=== PATIENT | female | born 1945 | race Caucasian/White ===

== ENCOUNTER → 2023-12-09 07:11 | Outpatient (REF) | payer OTHER, SELFPAY | LOC: WDC 07:11 | PROVIDERS: ATTENDING PHYSICIAN Family Medicine | DX: Z12.31 Encounter for screening mammogram for malignant neoplasm of breast (principal) | CPT/HCPCS: 77063; 77067 ==

== ENCOUNTER 2024-02-06 15:15 | Inpatient (IN) | payer OTHER, SELFPAY ==
[2024-02-06] VITALS (7 sets, daily range): BP systolic 152–214; BP diastolic 75–116; BMI 33.2; BMI 31.6
--- NOTE | 2024-02-06 12:32 | ED.GENMED ---
History of Present Illness
General
Chief Complaint: Breathing Problem
Source: patient
Exam Limitations: none
Time Seen by Provider: 02/06/24 12:23
History of Present Illness
History of Present Illness:
78-year-old female presents from family doctor's office for shortness of breath and cough. She was sent in as her oxygen levels were low at the office. She was seen in the office last week and thought to have bronchitis. She has been on
prednisone. She is a pack-a-day smoker. She denies chest pain. No leg swelling or calf pain. No prior history of CHF. No recent travel or surgery. No fevers. No other complaints at this time
Phy Exam
Physical Exam
Physical Exam:
General: Well-appearing female no acute respiratory distress
HEENT: Normocephalic atraumatic
Heart: Regular rate and rhythm
Lungs: Wheeze diffusely upon inspiration and expiration
Extremities: No cyanosis or edema
Skin: Warm no rash
Scores
Heart Failure Risk
Heart Failure Risk Score: Not Applicable
Course
Orders/Labs/Results
Orders:
Orders
02/06/24 12:31
Ipratropium/Albuterol Sulfate [Duoneb] 3 ml INH R NOW STA
CR Chest - 2 Views Urgent
Comment:
Reason For Exam: cough, sob
02/06/24 12:40
COVID-19 Antigen Urgent
Source: Nasal Swab
Complete Blood Count/With Diff Urgent
Comprehensive Metabolic Panel Urgent
NT-proBNP Urgent
Influenza A+B Rapid Molecular Urgent
LIZBETH Source: Nasal Swab
Specimen Description:
02/06/24 14:17
Dexamethasone Sod Phosphate [Decadron] 10 mg IV NOW STA
Abnormal Lab Results
02/06/24
12:40
WBC 11.4 H 10^3/uL
(4.8-10.8)
MCHC 32.5 L g/dL
(33.0-37.0)
Abs Immat Gran (auto) 0.3 H 10^3/uL
(0-0.05)
Absolute Neuts (auto) 8.8 H 10^3/uL
(1.4-6.5)
Immature Gran % 2.3 H %
(0-0.5)
Neutrophils % 77.1 H %
(42.2-75.2)
Lymphocytes % 15.5 L %
(20.5-51.1)
Carbon Dioxide 34 H mmol/L
(22-30)
Glucose 130 H mg/dl
(70-99)
02/06/24 12:40
02/06/24 12:40
Vital Signs
Initial and Last Documented VS:
Initial Vital Signs
Temp Pulse Resp BP Pulse Ox
99.5 F 84 20 214/103 88
02/06/24 12:17 02/06/24 12:17 02/06/24 12:17 02/06/24 12:17 02/06/24 12:17
Last Documented Vital Signs
Temp Pulse Resp BP Pulse Ox
99.5 F 65 23 155/106 86
02/06/24 12:17 02/06/24 13:00 02/06/24 13:00 02/06/24 13:00 02/06/24 13:00
MDM/Problems Addressed
Differential Diagnosis Includes:
Shortness of breath with cough. Wheezing on exam. Consider asthma versus bronchitis. Will check for viral illness including COVID and flu. X-ray pending to evaluate for underlying pneumonia. Patient is hypoxic here and is requiring 2 L of nasal
cannula oxygen. DuoNeb ordered. Labs pending
*Critical Care Note
Total Time (30-74mins, 75-104mins- exclusive of procedures): Not Applicable
Update Note
Update Note:
Chest x-ray reviewed shows no obvious consolidation. Patient persist to be hypoxic. She is 90% on 2 L of oxygen. Wheezing slightly improved after DuoNeb but will keep in hospital for acute bronchitis and hypoxia.
ED Attending Note
-
Portions of this chart may have been created with voice recognition software.� Occasional wrong word or��sound alike� substitutions may have occurred due to the inherent limitations of voice recognition software.
Discharge Plan
Departure
Patient Disposition: Admit
Date of Disposition: 02/06/24
Time of Disposition: 14:19
Admit to: Telemetry
Presentation/result/management discussed w/ accepting MD/DO: Hospitalist
Discharge Problem:
Acute bronchitis
Referrals:
Salbador De Anda MD [Family Provider] -
Interventions
Interventions:
*Risk Screen - Suicide Last Done: 02/06/24 12:17
*General Assessment Last Done: 02/06/24 12:17
*Neglect/Abuse Screening Last Done: 02/06/24 12:17
ED- Fall Risk Assessment Last Done: 02/06/24 12:50
*ED COVID-19 Vaccine History Last Done: 02/06/24 12:49
ED- Cardiac Assessment Last Done: 02/06/24 12:50
ED- Pulmonary Assessment Last Done: 02/06/24 12:50
Discharge Date and Time
Print Language: ALBANIAN
[2024-02-06] MEDS: DUONEB 3 ML INH ×2 (12:38→20:05)
[2024-02-06 12:59] LABS: % Basophils 0.6 % (0-2); % Eosinophils 0.8 % (0-6); % Immature Granulocytes 2.3 % (0-0.5); % Lymphocytes 15.5 % (20.5-51.1); % Monocytes 3.7 % (1.7-9.3); % Neutrophils 77.1 % (42.2-75.2); Absolute Basophils 0.1 10^3/uL (0-0.2); Absolute Eosinophils 0.1 10^3/uL (0-0.7); Absolute Immature Granulocytes 0.3 10^3/uL (0-0.05); Absolute Lymphocytes 1.8 10^3/uL (1.2-3.4); Absolute Monocytes 0.4 10^3/uL (0.1-0.6); Absolute Neutrophils 8.8 10^3/uL (1.4-6.5); Hematocrit 43.7 % (37.0-47.0); Hemoglobin 14.2 g/dL (12.0-16.0); Mean Corp Hgb Conc. 32.5 g/dL (33.0-37.0); Mean Corpuscular Volume 95.4 fL (81.0-99.0); Mean Platelet Volume 9.2 fL (7.4-10.4); Nucleated Red Blood Cells % 0 %; Platelet Count 217 10^3/uL (130-400); Red Blood Cell Count 4.58 10^6/uL (4.20-5.40); Red Cell Dist. Width 13.9 % (11.5-14.5); White Blood Cell Count 11.4 10^3/uL (4.8-10.8)
[2024-02-06 13:10] LABS: ALT (SGPT) 16 U/L (0-35); AST (SGOT) 24 U/L (14-36); Albumin 4.7 g/dl (3.5-5.0); Alkaline Phosphatase 50 U/L (38-126); Blood Urea Nitrogen 16 mg/dl (7-17); Calcium 9.8 mg/dl (8.4-10.2); Carbon Dioxide 34 mmol/L (22-30); Chloride 98 mmol/L (98-107); Estimated Creatinine Clearance 70 ml/min; Glucose 130 mg/dl (70-99); Potassium 3.7 mmol/L (3.5-5.1); Sodium 143 mmol/L (135-145); Total Bilirubin 0.6 mg/dl (0.2-1.3); Total Protein 7.9 g/dl (6.3-8.2); eGFR > 60.00
[2024-02-06 13:14] LABS: COVID-19 Antigen Negative (Negative)
[2024-02-06 13:18] LABS: NT-proBNP 194 pg/ml
--- NOTE | 2024-02-06 15:00 | HPS.HSE ---
Family Physician
-
Family Physician: Salbador De Anda
Chief Complaint
-
cough
History of Present Illness
78-year-old female past medical history of hypertension, hyperlipidemia, osteoporosis, diabetes, diabetic nephropathy, presenting with shortness of breath and cough with low oxygen levels at primary care physician office for the past week. She was
thought to have bronchitis last week. She has been on prednisone for the past 5 days. She denies chest pain. Denies swelling. Denies fevers or chills. Denies sore throat or runny nose. Denies sick contacts.
Denies history of COPD or asthma. She smokes less than a pack of cigarettes per day. Denies alcohol.
Medical History
Past Medical History
Past Medical History: Reports Other ( hypertension, hyperlipidemia, osteoporosis, diabetes, diabetic nephropathy)
Past Surgical History: Reports None
Social History
Tobacco: Smoker
Alcohol: None
Drug: None
Family History
Family History: Not pertinent
Allergies / Home Medications
Allergies reflects when Allergies were last updated in [facility].
Home Medications with original date entered in [facility]
Allergy/Medication List:
Allergies
Allergy/AdvReac Type Severity Reaction Status Date / Time
Penicillins Allergy Unknown Verified 02/06/24 12:21
Home Medications
alendronate 70 mg tablet 70 mg PO FR 02/06/24
aspirin 81 mg tablet,delayed release 81 mg PO QPM 02/06/24
atenolol 100 mg tablet 50 mg PO HS 02/06/24
calcium 600 mg (as carbonate)-vitamin D3 5 mcg (200 unit) tablet 1 tab PO HS 02/06/24
hydrochlorothiazide 25 mg tablet 25 mg PO DAILY 02/06/24
ibuprofen 200 mg tablet 200 mg PO Q6HPRN PRN mild pain 02/06/24
losartan 100 mg tablet 100 mg PO DAILY 02/06/24
metformin 500 mg tablet,extended release 24 hr 500 mg PO BID 02/06/24
pravastatin 20 mg tablet 20 mg PO HS 02/06/24
prednisone 20 mg tablet 20 mg PO DAILY 02/06/24
vitamins A,C,L-dbnk-mzuqjf 2,148 mcg-113 mg-45 mg-17.4 mg tablet (PreserVision AREDS) 1 tab PO BID 02/06/24
Review of Systems
-
History Source: Patient
A 12 point ROS was completed and negative except as noted: Yes
Constitutional: Reports No Symptoms
EENT: Reports No Symptoms
Respiratory: Reports See HPI
Cardiac: Reports No Symptoms
Abdomen/GI: Reports No Symptoms
: Reports No Symptoms
Musculoskeletal: Reports No Symptoms
Skin: Reports No Symptoms
Neurological: Reports No Symptoms
Endocrine: Reports No Symptoms
Hematologic/Lymphatic: Reports No Symptoms
Psych: Reports No Symptoms
Physical Exam
Vital Signs
Vital Signs
Temp Pulse Resp BP Pulse Ox
99.5 F 65 23 155/106 86
02/06/24 12:17 02/06/24 13:00 02/06/24 13:00 02/06/24 13:00 02/06/24 13:00
Physical Exam
General: Well Developed, Well Nourished and No Apparent Distress
HEENT: NormoCephalic, Moist mucous membranes and Atraumatic
Respiratory: Wheezes
Cardiac: S1/S2 and Regular Rhythm; No Murmur or Rub
GI: Soft, Non Tender, Non Distended and Normal Bowel Sounds; No Organomegaly
Rectal: Deferred by Provider
Musculoskeletal: No Clubbing, No Cyanosis and No Edema
Skin: No Rash
Neuro: Nonfocal/grossly intact
Laboratory Results
-
02/06/24 12:40
02/06/24 12:40
Laboratory Results
Total Bilirubin 0.6 mg/dl (0.2-1.3) 02/06/24 12:40
AST 24 U/L (14-36) 02/06/24 12:40
ALT 16 U/L (0-35) 02/06/24 12:40
Alkaline Phosphatase 50 U/L (38-126) 02/06/24 12:40
Data Reviewed
-
Lab Data: Labs Reviewed by me
Old Records: Reviewed
Impression/Plan
-
IMPRESSION:
PLAN:
# Acute bronchitis
-Chest x-ray unremarkable.
-DuoNebs every 6 hours
-Dexamethasone 4 mg every 12 hours
-Mucinex
# Uncontrolled hypertension
#Essential hypertension
-Systolic blood pressures up to 190s
-Continue atenolol
-Continue losartan
-Continue hydrochlorothiazide
-As needed hydralazine
Active smoker
Hyperlipidemia
-Continue statin
Osteoporosis
-Continue alendronate
Type 2 diabetes
-Continue metformin
Diabetic neuropathy
Full code
DVT prophylaxis-heparin
Diabetic diet
[2024-02-06] MEDS: DECADRON 10 MG IV (15:56)
[2024-02-06] MEDS: GLUCOPHAGE XR EXTENDED RELEASE 500 MG PO (17:06)
[2024-02-06] MEDS: ASPIR LOW (ENTERIC COATED) 81 MG PO (17:07)
[2024-02-06] MEDS: DUONEB INH (18:19)
[2024-02-06] MEDS: OSCAL 500 + D 500 MG PO (20:02)
[2024-02-06] MEDS: HEPARIN 5000 UNITS SC (20:02)
[2024-02-06] MEDS: OCUVITE SOFTGEL 1 CAP PO (20:02)
[2024-02-06] MEDS: PRAVACHOL 20 MG PO (20:02)
[2024-02-06] MEDS: TENORMIN 50 MG PO (20:02)
[2024-02-06] MEDS: MUCINEX 600 MG PO (20:03)
--- NOTE | 2024-02-06 21:00 | PTCARENOTE ---
while ambulating pt HR was 120's then back to 90-100's when she sat down.
[2024-02-07 03:31] VITALS: BP 173/79
[2024-02-07] MEDS: DECADRON 4 MG IV ×2 (05:29→17:40)
[2024-02-07 07:30] VITALS: BP 175/88
[2024-02-07 07:58] LABS: % Basophils 0.2 % (0-2); % Eosinophils 0.1 % (0-6); % Immature Granulocytes 1.1 % (0-0.5); % Monocytes 3.9 % (1.7-9.3); % Neutrophils 81.7 % (42.2-75.2); Absolute Immature Granulocytes 0.2 10^3/uL (0-0.05); Absolute Lymphocytes 1.7 10^3/uL (1.2-3.4); Absolute Monocytes 0.5 10^3/uL (0.1-0.6); Absolute Neutrophils 10.8 10^3/uL (1.4-6.5); Hematocrit 43.2 % (37.0-47.0); Hemoglobin 14.2 g/dL (12.0-16.0); Mean Corp Hgb Conc. 32.9 g/dL (33.0-37.0); Mean Corpuscular Hgb 31.7 pg (27.0-31.0); Mean Corpuscular Volume 96.4 fL (81.0-99.0); Mean Platelet Volume 9.6 fL (7.4-10.4); Nucleated Red Blood Cells % 0 %; Platelet Count 231 10^3/uL (130-400); Red Blood Cell Count 4.48 10^6/uL (4.20-5.40); Red Cell Dist. Width 13.8 % (11.5-14.5); White Blood Cell Count 13.2 10^3/uL (4.8-10.8)
[2024-02-07] MEDS: DUONEB 3 ML INH ×4 (08:00→19:08)
--- NOTE | 2024-02-07 08:39 | W.PN.HOSP.TC ---
Today's Communication/Plan
-
IV steroids. Antibiotics. CT of the chest.
Assessment / Plan
Assessment / Plan
Physical exam:
General: Acutely ill
HEENT: Normocephalic, Atraumatic and Moist Mucous Membranes
Respiratory: Bilateral wheezes, some rhonchi, no crackles
Cardiac: Regular Rhythm and S1/S2
GI: Soft, Nontender and Nondistended
Musculoskeletal: No Clubbing, No Cyanosis and No Edema
Neuro: Awake, Alert and Oriented
Psych: Calm
A/P:
Suspect undiagnosed acute COPD exacerbation with possible bronchitis but rule out pneumonia:
Continue IV dexamethasone 4 mg every 12 hours
Continue bronchodilators, DuoNebs 4 times daily and as needed
Start oral azithromycin today and if not for infection for anti-inflammatory effect
Continue Mucinex
Seen chest x-ray and some nonspecific abnormalities
Obtain CT scan of the chest without contrast today
Obtain twelve-lead EKG for baseline QTc
Obtain sputum culture
PT OT eval
Likely will require PFTs with referral to pulmonary as outpatient
Hypertension:
Uncontrolled
Continue atenolol 50 mg p.o. nightly, hydrochlorothiazide 25 mg p.o. daily, and losartan 100 as p.o. daily
Will start her on hydralazine 25 mg 3 times daily today 02/06
Monitor blood pressure and adjust medications according
Hyperlipidemia:
Continue pravastatin 20 mg p.o. nightly
Diabetes mellitus type 2:
Insulin sliding scale
Diabetic diet
Continue metformin XR 500 mg twice a day
Monitor blood sugars and adjust medications according
Osteoporosis:
Hold alendronate as inpatient and resume upon discharge
Smoker:
Advised quit smoking
Start nicotine patch
DVT prophylaxis:
Heparin SQ
CODE STATUS:
Full code
Anticipated Discharge: 24 - 48 hours
Subjective/Interval History
-
Date of Service: February 07, 2024
Patient still have some cough with yellow sputum production and also some shortness of breath. Afebrile.
Objective Data
-
Labs:
Laboratory Results
02/07/24
07:30
WBC 13.2 H
Hgb 14.2
Hct 43.2
Plt Count 231
Sodium Pending
Potassium Pending
Chloride Pending
Carbon Dioxide Pending
BUN Pending
Creatinine Pending
Glucose Pending
Calcium Pending
Vital Signs:
Vital Signs
Temp Pulse Resp BP Pulse Ox
98.8 F 74 16 175/88 87
02/07/24 07:30 02/07/24 08:01 02/07/24 08:01 02/07/24 07:30 02/07/24 08:01
I&O
02/06/24 02/07/24 02/08/24
06:59 06:59 06:59
Intake Total 480 / 480
Balance 480 / 480
[2024-02-07] MEDS: GLUCOPHAGE XR EXTENDED RELEASE 500 MG PO ×2 (09:07→17:33)
[2024-02-07] MEDS: ORETIC 25 MG PO (09:07)
[2024-02-07] MEDS: COZAAR 100 MG PO (09:07)
[2024-02-07] MEDS: MUCINEX 600 MG PO ×2 (09:07→20:43)
[2024-02-07] MEDS: OCUVITE SOFTGEL 1 CAP PO ×2 (09:08→20:43)
[2024-02-07] MEDS: HEPARIN 5000 UNITS SC ×2 (09:08→20:43)
[2024-02-07 09:50] LABS: Blood Urea Nitrogen 25 mg/dl (7-17); Calcium 10.2 mg/dl (8.4-10.2); Carbon Dioxide 29 mmol/L (22-30); Chloride 98 mmol/L (98-107); Estimated Creatinine Clearance 82 ml/min; Glucose 139 mg/dl (70-99); Potassium 4.2 mmol/L (3.5-5.1); Sodium 142 mmol/L (135-145); eGFR > 60.00
[2024-02-07 11:00] VITALS: BP 152/84; BP 155/84; BP 162/82; PULSE 62; PULSE 67; PULSE 68
[2024-02-07] MEDS: APRESOLINE 25 MG PO ×3 (13:03→20:44)
[2024-02-07] MEDS: ZITHROMAX 500 MG PO (13:03)
--- NOTE | 2024-02-07 14:14 | CM ---
Pt seen bedside. Pt lives w/ spouse in a split level home, no steps.
Pt independent. Denies DME use for ambulating and daily functioning
Denies SNF, VN/PT in the past
Pt does not use O2 at home. Receiving 2L O2 and aimee neb treatments.
Address, point of contact and insurance verified.
PCP: Dr. Salbador De Anda
Pharmacy: [facility]
Plan: Home w/ needs vs no needs anticipated
[2024-02-07 15:06] VITALS: BP 151/77
[2024-02-07] MEDS: ASPIR LOW (ENTERIC COATED) 81 MG PO (17:33)
[2024-02-07] MEDS: TENORMIN 50 MG PO (20:44)
[2024-02-07] MEDS: PRAVACHOL 20 MG PO (20:44)
[2024-02-07] MEDS: OSCAL 500 + D 500 MG PO (20:44)
[2024-02-07 23:15] VITALS: BP 155/71
[2024-02-08] VITALS (8 sets, daily range): BP systolic 147–174; BP diastolic 71–105; PULSE 61; O2SAT 94
[2024-02-08] MEDS: DECADRON 4 MG IV ×2 (05:18→17:09)
[2024-02-08] MEDS: DUONEB 3 ML INH ×4 (08:05→19:11)
[2024-02-08] MEDS: GLUCOPHAGE XR EXTENDED RELEASE 500 MG PO ×2 (08:08→17:09)
[2024-02-08] MEDS: HEPARIN 5000 UNITS SC ×3 (08:08→23:17)
[2024-02-08] MEDS: APRESOLINE 25 MG PO (08:08)
[2024-02-08] MEDS: COZAAR 100 MG PO (08:08)
[2024-02-08] MEDS: OCUVITE SOFTGEL 1 CAP PO ×2 (08:09→21:05)
[2024-02-08] MEDS: MUCINEX 600 MG PO ×2 (08:09→21:05)
[2024-02-08] MEDS: ZITHROMAX 500 MG PO (08:09)
[2024-02-08] MEDS: ORETIC 25 MG PO (08:09)
[2024-02-08 08:27] LABS: % Basophils 0.2 % (0-2); % Lymphocytes 12.7 % (20.5-51.1); % Monocytes 3.2 % (1.7-9.3); % Neutrophils 82.9 % (42.2-75.2); Absolute Immature Granulocytes 0.2 10^3/uL (0-0.05); Absolute Lymphocytes 1.8 10^3/uL (1.2-3.4); Absolute Monocytes 0.5 10^3/uL (0.1-0.6); Hematocrit 43.2 % (37.0-47.0); Hemoglobin 13.9 g/dL (12.0-16.0); Mean Corp Hgb Conc. 32.2 g/dL (33.0-37.0); Mean Corpuscular Hgb 31.5 pg (27.0-31.0); Nucleated Red Blood Cells % 0 %; Red Blood Cell Count 4.41 10^6/uL (4.20-5.40); Red Cell Dist. Width 14.1 % (11.5-14.5); White Blood Cell Count 14.5 10^3/uL (4.8-10.8)
--- NOTE | 2024-02-08 09:00 | W.PN.HOSP.TC ---
Today's Communication/Plan
-
IV steroids, oral antibiotics.
Assessment / Plan
Assessment / Plan
Physical exam:
General: No acute distress
HEENT: Normocephalic, Atraumatic and Moist Mucous Membranes
Respiratory: Bilateral scattered wheezes, some rhonchi, no crackles
Cardiac: Regular Rhythm and S1/S2
GI: Soft, Nontender and Nondistended
Musculoskeletal: No Clubbing, No Cyanosis and No Edema
Neuro: Awake, Alert and Oriented
Psych: Calm
A/P:
Suspect undiagnosed acute COPD exacerbation with possible bronchitis but rule out pneumonia:
Continue IV dexamethasone 4 mg every 12 hours--> keep IV steroid and will consider switch to oral tomorrow
Continue bronchodilators, DuoNebs 4 times daily and as needed
Started oral azithromycin
Continue Mucinex
Seen chest x-ray and some nonspecific abnormalities
Obtain CT scan of the chest without contrast--> shows evidence of probable pneumonia
Obtain twelve-lead EKG for baseline QTc
Obtain sputum culture
PT OT eval
Likely will require PFTs with referral to pulmonary as outpatient
Probable pneumonia:
Penicillin allergy
Levaquin was used-there was infiltration on right upper extremity and also itchiness-->?allergy (give Benadryl x1 and already on steroids)
For now will continue with azithromycin.
Hypertension:
Uncontrolled
Continue atenolol 50 mg p.o. nightly, hydrochlorothiazide 25 mg p.o. daily, and losartan 100 as p.o. daily
Continue hydralazine but increase to 50 mg 3 times daily today 02/06
Monitor blood pressure and adjust medications according
Hyperlipidemia:
Continue pravastatin 20 mg p.o. nightly
Diabetes mellitus type 2:
There was not insulin sliding scale so started today
Diabetic diet
Continue metformin XR 500 mg twice a day
Monitor blood sugars and adjust medications according
Osteoporosis:
Hold alendronate as inpatient and resume upon discharge
Smoker:
Advised quit smoking
Start nicotine patch
DVT prophylaxis:
Heparin SQ
CODE STATUS:
Full code
Anticipated Discharge: 24 - 48 hours
Subjective/Interval History
-
Date of Service: February 08, 2024
Patient feels improving although still have some wheezes. Afebrile
Objective Data
-
Labs:
Laboratory Results
02/08/24
08:01
WBC 14.5 H
Hgb 13.9
Hct 43.2
Plt Count Pending
Sodium Pending
Potassium Pending
Chloride Pending
Carbon Dioxide Pending
BUN Pending
Creatinine Pending
Glucose Pending
Calcium Pending
Vital Signs:
Vital Signs
Temp Pulse Resp BP Pulse Ox
98.6 F 58 18 154/82 88
02/08/24 08:00 02/08/24 08:05 02/08/24 08:05 02/08/24 08:00 02/08/24 08:05
I&O
02/07/24 02/08/24 02/09/24
06:59 06:59 06:59
Intake Total 480 / 480 1680 / 1680
Balance 480 / 480 1680 / 1680
[2024-02-08 09:02] LABS: Procalcitonin < 0.05 ng/ml (0.0-0.25)
[2024-02-08 11:38] LABS: Blood Urea Nitrogen 32 mg/dl (7-17); Calcium 10.2 mg/dl (8.4-10.2); Carbon Dioxide 29 mmol/L (22-30); Chloride 96 mmol/L (98-107); Estimated Creatinine Clearance 62 ml/min; Glucose 172 mg/dl (70-99); Potassium 4.3 mmol/L (3.5-5.1); Sodium 139 mmol/L (135-145); eGFR > 60.00
[2024-02-08] MEDS: LEVAQUIN 150 IV (13:42)
--- NOTE | 2024-02-08 14:21 | CM ---
Chart reviewed.
Per PT/OT, no needs identified
Cont. 2L O2
Receiving neb tx
Plan: Home; no needs anticipated
--- NOTE | 2024-02-08 15:06 | PTCARENOTE ---
Pt receiving Levaquin IV and noted to have redness and itching at IV site. IV was noted to be infiltrated as well. Dr. Saavedra aware. Will d/c Levaquin and continue po Zithromax.
--- NOTE | 2024-02-08 15:13 | VATNOTE ---
called to restart IV due to right forearm infiltrate. Noted moderate infiltrate that was red and 'itches'; not much of Levoflaxin had infused. PCN informed; ice applied; provider saw site as well. RS of IV in left hand. Antibiotic stopped per
[2024-02-08] MEDS: APRESOLINE 50 MG PO ×2 (15:18→21:05)
[2024-02-08] MEDS: BENADRYL 50 MG PO (15:18)
[2024-02-08 16:56] LABS: Glucose - Point of Care 120 mg/dl (70-99)
[2024-02-08] MEDS: ASPIR LOW (ENTERIC COATED) 81 MG PO (17:09)
[2024-02-08] MEDS: PRAVACHOL 20 MG PO (21:05)
[2024-02-08] MEDS: OSCAL 500 + D 500 MG PO (21:05)
[2024-02-08] MEDS: TENORMIN 50 MG PO (21:06)
[2024-02-08 22:11] LABS: Glucose - Point of Care 174 mg/dl (70-99)
[2024-02-09] VITALS (7 sets, daily range): BP systolic 143–168; BP diastolic 71–91; PULSE 58; O2SAT 95
--- NOTE | 2024-02-09 03:04 | PTCARENOTE ---
Pt HR down to 39 on tele. HR consistent in low-mid 40s. Pt asymptomatic, asleep. VOICE STUDIES DIRECTOR made aware. No further orders.
[2024-02-09] MEDS: DECADRON 4 MG IV (05:30)
[2024-02-09 07:23] LABS: Glucose - Point of Care 151 mg/dl (70-99)
[2024-02-09] MEDS: DUONEB 3 ML INH ×4 (07:41→19:55)
--- NOTE | 2024-02-09 08:52 | W.PN.HOSP.TC ---
Addendum entered and electronically signed by Raz Saavedra MD 02/09/24 15:59:
Bacterial Pneumonia
Original Note:
Today's Communication/Plan
-
Steroids antibiotics and bronchodilators.
Assessment / Plan
Assessment / Plan
Physical exam:
General: No acute distress
HEENT: Normocephalic, Atraumatic and Moist Mucous Membranes
Respiratory: Less wheezes today, no crackles or rhonchi
Cardiac: Regular Rhythm and S1/S2
GI: Soft, Nontender and Nondistended
Musculoskeletal: No Clubbing, No Cyanosis and No Edema
Neuro: Awake, Alert and Oriented
Psych: Calm
A/P:
Suspect undiagnosed acute COPD exacerbation:
Switch IV dexamethasone today to oral prednisone
Continue bronchodilators, DuoNebs 4 times daily and as needed
Continue oral azithromycin
Pulse ox improved at rest but still dropping on exertion so we will recheck pulse ox for home oxygen needs tomorrow.
Continue Mucinex
Seen chest x-ray and some nonspecific abnormalities
Obtained CT scan of the chest without contrast--> shows evidence of probable pneumonia
Obtained twelve-lead EKG for baseline QTc
Obtain sputum culture
PT OT eval
Likely will require PFTs with referral to pulmonary as outpatient
Probable pneumonia:
Penicillin allergy
Levaquin was used-there was infiltration on right upper extremity and also itchiness-->?allergy (give Benadryl x1 and already on steroids)
For now will continue with azithromycin.
Hypertension:
Uncontrolled
Continue atenolol 50 mg p.o. nightly, hydrochlorothiazide 25 mg p.o. daily, and losartan 100 as p.o. daily
Continue hydralazine but increase to 50 mg 3 times daily today 02/06
Monitor blood pressure and adjust medications according
Hyperlipidemia:
Continue pravastatin 20 mg p.o. nightly
Diabetes mellitus type 2:
Continue insulin sliding scale and now that steroids have been tapered most likely will require less intervention
Diabetic diet
Continue metformin XR 500 mg twice a day
Monitor blood sugars and adjust medications according
Osteoporosis:
Hold alendronate as inpatient and resume upon discharge
Smoker:
Advised quit smoking
Continue nicotine patch
DVT prophylaxis:
Heparin SQ
CODE STATUS:
Full code
Anticipated Discharge: Within 24 hours
Subjective/Interval History
-
Date of Service: February 09, 2024
Patient feels improved with less cough and shortness of breath. Afebrile
Objective Data
-
Vital Signs:
Vital Signs
Temp Pulse Resp BP Pulse Ox
97.9 F 48 16 168/91 93
02/09/24 07:08 02/09/24 07:44 02/09/24 07:44 02/09/24 07:08 02/09/24 08:16
I&O
02/08/24 02/09/24 02/10/24
06:59 06:59 06:59
Intake Total 1680 / 1680 1590 / 1590
Balance 1680 / 1680 1590 / 1590
[2024-02-09] MEDS: GLUCOPHAGE XR EXTENDED RELEASE 500 MG PO ×2 (09:12→17:05)
[2024-02-09] MEDS: COZAAR 100 MG PO (09:12)
[2024-02-09] MEDS: APRESOLINE 50 MG PO ×3 (09:12→21:18)
[2024-02-09] MEDS: ORETIC 25 MG PO (09:13)
[2024-02-09] MEDS: HEPARIN 5000 UNITS SC ×3 (09:13→23:14)
[2024-02-09] MEDS: MUCINEX 600 MG PO ×2 (09:13→21:17)
[2024-02-09] MEDS: OCUVITE SOFTGEL 1 CAP PO ×2 (09:13→21:18)
[2024-02-09] MEDS: ZITHROMAX 500 MG PO (09:14)
[2024-02-09 11:42] LABS: Glucose - Point of Care 133 mg/dl (70-99)
[2024-02-09 11:46] LABS: Glycohemoglobin (HgbA1c) 6.5 % (4.0-5.6)
--- NOTE | 2024-02-09 14:26 | PN.CDI ---
CDI
- -
CDI:
Physician Documentation Request
Admit Date: 02/06/24 15:15
Dear Doctor Quentin,
Please review the following and provide your response in the progress notes.
Clinical Indicators:
PN, 02/08
#Steroids antibiotics and bronchodilators.
#Obtained CT scan of the chest without contrast-->
#...shows evidence of probable pneumonia
#Obtain sputum culture
#Probable pneumonia:
#Levaquin was used-there was infiltration on right upper extremity
#...and also itchiness-->?allergy (give Benadryl x1 and already on steroids)
#For now will continue with azithromycin.
Laboratory Tests
02/06/24 02/07/24 02/08/24
12:40 07:30 08:01
WBC 11.4 H 13.2 H 14.5 H
02/08/24 23:34 Respiratory Culture - Pending
Sputum Gram Stain - Preliminary
Based on the above and your clinical assessment, please clarify in the Progress Notes further specificity regarding the type of pneumonia monitored, evaluated and treated?
Bacterial Pneumonia
Aspiration Pneumonia - indicate substance such as food or vomitus, oils or other solids or liquids
Other(please specify)
Use of terms such as suspected, likely, concern for, or probable (associated with a specific diagnosis that is being evaluated, monitored, or treated as if it exists) are acceptable and can be coded in the inpatient setting, when documented at the
time of discharge.
Thank you,
Luzma Kahn RN BSN CCDS
CDI Specialist
Please contact via tiger text
Please use your independent medical judgment in providing your response.
[2024-02-09 16:57] LABS: Glucose - Point of Care 122 mg/dl (70-99)
[2024-02-09] MEDS: ASPIR LOW (ENTERIC COATED) 81 MG PO (17:05)
[2024-02-09] MEDS: DELTASONE 40 MG PO (21:17)
[2024-02-09] MEDS: PRAVACHOL 20 MG PO (21:18)
[2024-02-09] MEDS: OSCAL 500 + D 500 MG PO (21:18)
[2024-02-09] MEDS: TENORMIN 50 MG PO (21:18)
[2024-02-09 21:29] LABS: Glucose - Point of Care 114 mg/dl (70-99)
[2024-02-09] MEDS: MELATONIN 5 MG PO (23:08)
[2024-02-10 03:15] VITALS: BP 149/70
[2024-02-10 07:00] VITALS: BP 149/70
[2024-02-10 07:39] LABS: Glucose - Point of Care 132 mg/dl (70-99)
[2024-02-10] MEDS: DUONEB 3 ML INH ×2 (08:00→11:32)
[2024-02-10] MEDS: GLUCOPHAGE XR EXTENDED RELEASE 500 MG PO (08:10)
[2024-02-10] MEDS: COZAAR 100 MG PO (08:10)
[2024-02-10] MEDS: APRESOLINE 50 MG PO (08:10)
[2024-02-10] MEDS: ORETIC 25 MG PO (08:10)
[2024-02-10] MEDS: HEPARIN 5000 UNITS SC (08:10)
[2024-02-10] MEDS: ZITHROMAX 500 MG PO (08:10)
[2024-02-10] MEDS: OCUVITE SOFTGEL 1 CAP PO (08:12)
[2024-02-10] MEDS: MUCINEX 600 MG PO (08:13)
[2024-02-10] MEDS: DELTASONE 40 MG PO (08:13)
--- NOTE | 2024-02-10 09:55 | W.PN.HOSP.TC ---
Today's Communication/Plan
-
Discharge plan today
Assessment / Plan
Assessment / Plan
Physical exam:
General: Well Developed, Well Nourished and No Apparent Distress
HEENT: Normocephalic, Atraumatic and Moist Mucous Membranes
Respiratory: Clear to Auscultation; Negative Wheezes, Rales or Rhonchi
Cardiac: Regular Rhythm and S1/S2
GI: Soft, Nontender and Nondistended
Musculoskeletal: No Clubbing, No Cyanosis and No Edema
Neuro: Awake, Alert and Oriented
Psych: Calm
A/P:
Suspect undiagnosed acute COPD exacerbation:
Continue oral prednisone and plan for tapering course as outpatient
Continue bronchodilators, DuoNebs 4 times daily and as needed
Continue oral azithromycin to finish course
Assess home oxygen needs
Continue Mucinex
Seen chest x-ray and some nonspecific abnormalities
Obtained CT scan of the chest without contrast--> shows evidence of probable pneumonia
Obtained twelve-lead EKG for baseline QTc
Obtain sputum culture
PT OT eval
Likely will require PFTs with referral to pulmonary as outpatient--> discussed with Dr. Samuel and we will arrange arrange outpatient referral to pulmonary.
Probable pneumonia:
Penicillin allergy
Levaquin was used-there was infiltration on right upper extremity and also itchiness-->?allergy (give Benadryl x1 and already on steroids)
For now will continue with azithromycin.
Hypertension:
Uncontrolled
Continue atenolol 50 mg p.o. nightly, hydrochlorothiazide 25 mg p.o. daily, and losartan 100 as p.o. daily
Continue hydralazine but increase to 50 mg 3 times daily
Monitor blood pressure and adjust medications according
Hyperlipidemia:
Continue pravastatin 20 mg p.o. nightly
Diabetes mellitus type 2:
Continue insulin sliding scale and now that steroids have been tapered most likely will require less intervention
Diabetic diet
Continue metformin XR 500 mg twice a day
Monitor blood sugars and adjust medications according
Osteoporosis:
Hold alendronate as inpatient and resume upon discharge
Smoker:
Advised quit smoking
Continue nicotine patch
DVT prophylaxis:
Heparin SQ
CODE STATUS:
Full code
Anticipated Discharge: Today
Subjective/Interval History
-
Date of Service: February 10, 2024
Patient doing well. Less shortness of breath and cough.
Objective Data
-
Vital Signs:
Vital Signs
Temp Pulse Resp BP Pulse Ox
98.5 F 57 16 149/70 95
02/10/24 07:00 02/10/24 08:00 02/10/24 08:00 02/10/24 07:00 02/10/24 08:00
I&O
02/09/24 02/10/24 02/11/24
06:59 06:59 06:59
Intake Total 1590 / 1590 480 / 480
Balance 1590 / 1590 480 / 480
--- NOTE | 2024-02-10 11:08 | CM ---
Patient seen bedside, off O2. Patient denies needs from CM, inquiring about her discharge. IMM reviewed, signed, placed in chart. CM will continue to follow for all discharge planning needs.
Plan; home no needs.
[2024-02-10 12:04] LABS: Glucose - Point of Care 115 mg/dl (70-99)
--- NOTE | 2024-02-10 13:30 | W.DCSUMMARY ---
Discharge Summary
Discharge Data
Date of Admission: 02/06/24
Date of Discharge: 02/10/24
-
Pending Results: No
Hospital Course
Patient 78 years old female smoker who came into the hospital with shortness of breath, cough, wheezing, and hypoxia. Patient was started on IV steroids and bronchodilators. She had a CT scan concerning for pneumonia. She was treated with oral
azithromycin and responded well. Patient has been afebrile and hemodynamically stable. She was able to come off oxygen. Her steroids have been switched to oral. I reached out to pulmonary for a referral as outpatient since she will require
further evaluation by pulmonary and patient agreeable with that plan. Otherwise, patient feels symptomatically back to her baseline. She will be discharged in stable condition today.
Discharge duration: 35 minutes
Discharge Plan
-
Patient Disposition: Home (Routine Discharge)
Discharge Diagnosis/Procedures: Acute chronic obstructive pulmonary disease exacerbation. Pneumonia. Hypoxia.
Condition: Fair
Diet: Low Cholesterol
Activity: As tolerated
Blood Work: Please PCP to order CBC, BMP within 1 week
Referrals:
Salbador De Anda MD [Family Provider] - in less than 1 week
Jayson Samuel MD [Active] - in four to six weeks
Prescriptions:
New
hydralazine 25 mg Tablet
50 mg PO TID 30 Days Qty: 180 0RF
prednisone 10 mg Tablet
See Rx Instructions .ROUTE .COMPLEX Qty: 30 0RF
Rx Instructions:
Take By Mouth:
40 mg daily x3 days, 30 mg daily x3 days,
20 mg daily x3 days, 10 mg daily x3 days.
azithromycin 250 mg Tablet
500 mg PO DAILY 2 Days Qty: 4 0RF
Continued
atenolol 100 mg Tablet
50 mg PO HS
alendronate 70 mg Tablet
70 mg PO FR
aspirin 81 mg Tablet,Delayed Release (Dr/Ec)
81 mg PO QPM
ibuprofen 200 mg Tablet
200 mg PO Q6HPRN PRN (Reason: mild pain)
pravastatin 20 mg Tablet
20 mg PO HS
hydrochlorothiazide 25 mg Tablet
25 mg PO DAILY
losartan 100 mg Tablet
100 mg PO DAILY
metformin 500 mg Tablet Extended Release 24 Hr
500 mg PO BID
PreserVision AREDS 2,148 mcg-113 mg-45 mg-17.4mg Tablet
1 tab PO BID
calcium carbonate-vitamin D3 600 mg-5 mcg (200 unit) Tablet
1 tab PO HS
Discontinued
prednisone 20 mg Tablet
20 mg PO DAILY
Rx Instructions:
started 01-31-24 for 7 days
Discharge Orders:
Discharge Patient (As Directed); Ordered 02/10/24
Ordered By: Raz Saavedra
Discharge Date and Time
Discharge Date/Time: 02/10/24 14:58
Print Language: NAURUAN
== END 2024-02-10 14:58 | disposition home or self-care (01) | DRG 190 ==
LOC: 4 WEST ACU 15:15
PROVIDERS: Physician Assistant; ADMITTING PHYSICIAN Hospitalist; ATTENDING PHYSICIAN Hospitalist; EMERGENCY PHYSICIAN Emergency Medicine; FAMILY PHYSICIAN Family Medicine
DX: J44.1 Chronic obstructive pulmonary disease with (acute) exacerbation (principal); J15.9 Unspecified bacterial pneumonia; J44.0 Chronic obstructive pulmonary disease with (acute) lower respiratory infection; F17.210 Nicotine dependence, cigarettes, uncomplicated; R09.02 Hypoxemia; J20.9 Acute bronchitis, unspecified; I10 Essential (primary) hypertension; E78.5 Hyperlipidemia, unspecified; M81.0 Age-related osteoporosis without current pathological fracture; E11.40 Type 2 diabetes mellitus with diabetic neuropathy, unspecified; Z88.0 Allergy status to penicillin; Z79.84 Long term (current) use of oral hypoglycemic drugs; Z79.83 Long term (current) use of bisphosphonates; Z79.82 Long term (current) use of aspirin; Z79.52 Long term (current) use of systemic steroids; Z11.52 Encounter for screening for COVID-19
CPT/HCPCS: 71046; 71250; 80048; 80053; 82962; 83036; 83880; 84145; 85025; 87070; 87205; 87502; 87811; 93005; 94640; 97116; 97162; 97166; 97530; 99285; 99406

== ENCOUNTER 2025-01-08 01:23 | Emergency (ER) | payer OTHER, SELFPAY ==
[2025-01-08 01:23] VITALS: BP 214/122
--- NOTE | 2025-01-08 02:45 | DOWNTIME ---
There was a [employer] Client Composition Instructor Downtime on 01/08/2025 from 0100 to 01/08/2025 at 0215. Downtime documentation of patient's care, including medication administrations, has been reconciled in the electronic record per guidelines. Refer to the
patient's paper chart under the miscellaneous tab to see printed paper medication records and downtime forms.
[2025-01-08 03:00] VITALS: BMI 31.5
[2025-01-08 03:07] VITALS: BP 170/100
[2025-01-08 04:03] LABS: Urine Character Clear (Clear)
[2025-01-08 04:16] LABS: Urine Red Blood Cell 16-20 /HPF (0-2)
[2025-01-08] MEDS: VALIUM 2 MG PO (04:17)
[2025-01-08] MEDS: TORADOL 15 MG IM (04:17)
--- NOTE | 2025-01-08 05:06 | ED.GENMED ---
History of Present Illness
General
Chief Complaint: Extremity Pain (non-traumatic)
Source: patient
Exam Limitations: none
Nursing documentation reviewed up to this point in time: agreed with
History of Present Illness
History of Present Illness:
Note:
CHIEF COMPLAINT(S)
Low back pain radiating to the left knee.
HISTORY OF PRESENT ILLNESS
The patient is a 79-year-old male who presents with low back pain that radiates to the left knee. The symptoms started yesterday without any trauma. The patient denies urinary retention or incontinence and reports taking ibuprofen, which offered
some relief, with the last dose taken at 3 p.m. yesterday. He denies fever, chills, cough, or vomiting and reports no recent injury.
SOCIAL HISTORY
The patient is a smoker and is currently trying to quit.
REVIEW OF SYSTEMS
- Neurological: Denies urinary retention or incontinence.
- Respiratory: Denies fever or chills.
- Gastrointestinal: Denies cough or vomiting.
- Musculoskeletal: Reports low back pain radiating to the left knee.
PHYSICAL EXAM
General: Alert, no acute distress.
Skin: Warm, dry.
Head: Normocephalic, atraumatic.
Neck: Supple, trachea midline.
Eye Ears, nose, mouth and throat: Oral mucosa moist.
Cardiovascular: Normal peripheral perfusion, no edema. Heart is in regular rhythm.
Respiratory: Respirations are non-labored. Low saturation noted.
Gastrointestinal: Abdomen nondistended.
Back: Normal range of motion, normal alignment. Focused on the left leg and hip.
Musculoskeletal: Mildly positive straight leg raising test on the left. Normal hip rotation test. No knee or ankle pain.
Neurological: Alert and oriented to person, place, time, and situation. No focal neurological deficit observed.
Psychiatric: Cooperative, appropriate mood & affect.
PLAN
- The patient will attempt postural and volume interventions to manage symptoms.
DIFFERENTIAL DIAGNOSIS
The Differential Diagnosis includes, in no particular order and is not limited to:
1. Sciatica
2. Lumbar radiculopathy
3. Lumbar strain
4. Disc herniation
5. Spinal stenosis
6. Osteoarthritis
7. Ankylosing spondylitis
8. Peripheral neuropathy
9. Hip arthritis
10. Lumbosacral spondylosis
Disposition:
SUMMARY OF ENCOUNTER
The patient, a 79-year-old female, was seen with complaints of low back pain radiating to her left knee, beginning yesterday without any associated trauma. She denies bowel or bladder incontinence. The patient experienced symptom relief with
ibuprofen and a muscle relaxant previously administered. Evaluation revealed no acute distress or additional concerning symptoms. The patient expressed a desire to be discharged and plans to continue managing the pain with ibuprofen at home.
DISPOSITION
Discharge
ASSESSMENT
The patients symptoms are consistent with lumbar radiculopathy or sciatica, likely due to nerve compression or irritation possibly stemming from an underlying condition such as lumbar strain or osteoarthritis.
PLAN
The patient will continue taking ibuprofen as needed for pain management at home. She was advised on postural changes and volume interventions to manage symptoms.
PATIENT EDUCATION AND COUNSELING
The patient was informed about the nature of her condition, potential contributing factors, and advised on postural changes and volume-related interventions to help alleviate symptoms. The importance of continuing [id number] medication as
needed was discussed.
FOLLOW-UP INSTRUCTIONS
The patient was advised to follow up with her primary care physician if symptoms persist or worsen.
MEDICATION RECONCILIATION
The patient declined a prescription for a muscle relaxant and intends to continue taking ibuprofen as needed for pain management.
MEDICAL DECISION MAKING
-Complexity of Data Reviewed: Chronic conditions affecting care include possible degenerative spine conditions or nerve-related issues secondary to age. Differential diagnoses include sciatica, lumbar radiculopathy, lumbar strain, disc herniation,
spinal stenosis, osteoarthritis, ankylosing spondylitis, peripheral neuropathy, hip arthritis, and lumbosacral spondylosis.
-Data:
Category 3
The patients decision to manage the condition at home was based on her symptom relief with ibuprofen and muscle relaxants, along with patient preferences against further prescriptions.
-Risk:
Consideration of Admission/Observation: Escalation of care including admission or observation was considered given the complexity and risk of the patients presenting complaint, but the patient was deemed safe for outpatient management with close
follow-up due to stable vitals, effective symptom management with current medications, and reliable follow-up potential.
DIAGNOSIS
-Lumbar Radiculopathy, Left Side, Approximate ICD-10 Code: M54.41
-Sciatica, Approximate ICD-10 Code: M54.3
Phy Exam
Physical Exam
Physical Exam:
.
Course
Orders/Labs/Results
Orders:
Orders
01/08/25 03:54
Urinalysis Reflex To Culture Urgent
Date Specimen was Collected: 01/08/25
Time Specimen was Collected: 03:47
Urine Microscopic Reflex Cult Urgent
Urine Culture Urgent
LIZBETH Source: U
Specimen Description:
Date Specimen was Collected: 01/08/25
Time Specimen was Collected: 03:47
01/08/25 03:57
Ketorolac [Toradol] 15 mg IM NOW STA
01/08/25 03:59
Diazepam [Valium] 2 mg PO NOW STA
Abnormal Lab Results
01/08/25
03:54
Ur Occult Blood Reflex 3+ A
(Negative)
Leukocyte Esterase Rfl 2+ A
(Negative)
Urine RBC 16-20 A /HPF
(0-2)
Urine Bacteria (Reflex) Few A
(Negative)
Urine Albumin (Reflex) 3+ A
(Neg - Trace)
Vital Signs
Initial and Last Documented VS:
Initial Vital Signs
Temp Pulse Resp BP Pulse Ox
97.8 F 96 24 214/122 98
01/08/25 01:23 01/08/25 01:23 01/08/25 01:23 01/08/25 01:23 01/08/25 01:23
Last Documented Vital Signs
Temp Pulse Resp BP Pulse Ox
98.1 F 68 20 190/90 98
01/08/25 03:07 01/08/25 05:24 01/08/25 03:07 01/08/25 05:24 01/08/25 05:09
*Pulse Oximetry
SaO2: 98
Oxygen Mode of Delivery: Room air
Patient hypoxic: no
*Critical Care Note
Total Time (30-74mins, 75-104mins- exclusive of procedures): Not Applicable
ED Attending Note
-
Portions of this chart may have been created with voice recognition software.� Occasional wrong word or��sound alike� substitutions may have occurred due to the inherent limitations of voice recognition software.
Discharge Plan
Departure
Patient Disposition: Home (Routine Discharge)
Date of Disposition: 01/08/25
Time of Disposition: 05:07
Patient with high blood pressure during this ER visit?: Yes
Condition: Good
Discharge Problem:
Sciatica
Instructions: Sciatica - ED (DC), BLOOD PRESSURE
Prescriptions:
No Action
atenolol 100 mg Tablet
50 mg PO HS
alendronate 70 mg Tablet
70 mg PO FR
aspirin 81 mg Tablet,Delayed Release (Dr/Ec)
81 mg PO QPM
ibuprofen 200 mg Tablet
200 mg PO Q6HPRN PRN (Reason: mild pain)
pravastatin 20 mg Tablet
20 mg PO HS
hydrochlorothiazide 25 mg Tablet
25 mg PO DAILY
losartan 100 mg Tablet
100 mg PO DAILY
metformin 500 mg Tablet Extended Release 24 Hr
500 mg PO BID
PreserVision AREDS 2,148 mcg-113 mg-45 mg-17.4mg Tablet
1 tab PO BID
calcium carbonate-vitamin D3 600 mg-5 mcg (200 unit) Tablet
1 tab PO HS
hydralazine 25 mg Tablet
50 mg PO TID 30 Days Qty: 180 0RF
prednisone 10 mg Tablet
See Rx Instructions .ROUTE .COMPLEX Qty: 30 0RF
Rx Instructions:
Take By Mouth:
40 mg daily x3 days, 30 mg daily x3 days,
20 mg daily x3 days, 10 mg daily x3 days.
azithromycin 250 mg Tablet
500 mg PO DAILY 2 Days Qty: 4 0RF
Referrals:
Salbador De Anda MD [Family Provider, [facility]]
Activity Restrictions/Additional Instructions:
Thank You for choosing [facility].
It was a pleasure meeting you and taking part in your care. We hope for your continued healing and wellness.
Please read discharge instructions in their entirety. However, they are for general education and may not describe your exact diagnosis at discharge. Information on your ER visit and medical conditions were discussed with you along with appropriate
follow up information...
If indicated, please take your medications as instructed and indicated on discharge paperwork.
Please schedule a follow up appointment as directed. Call to schedule an appointment
Please return to the emergency department with ANY change in, persisting, or worsening of symptoms. If any of your symptoms do not improve, or persist, or become more severe within 6-12 hours, please return to the emergency department for further
care.
Please return to the emergency department if you develop a headache, neck pain/stiffness, fever greater than 100.4F, chest pain, shortness of breath, persistent nausea, vomiting, slurred speech, difficulty walking, numbness/tingling, weakness, signs
of infection or any other symptoms that are worrisome to you.
If you have any questions or concerns please do not hesitate to call the Hospital at .
Interventions
Interventions:
*Risk Screen - Suicide Last Done: 01/08/25 01:23
*General Assessment Last Done: 01/08/25 03:01
*Neglect/Abuse Screening Last Done: 01/08/25 01:23
*ED- Fall Risk Assessment Last Done: 01/08/25 03:01
*ED COVID-19 Vaccine History Last Done: 01/08/25 03:01
*ED Influenza Vaccine History Last Done: 01/08/25 03:01
*Nursing Disposition Last Done: 01/08/25 05:24
ED-Musculoskeletal Assessment Last Done: 01/08/25 03:03
ED-Peripheral Vascular Assessment Last Done: 01/08/25 03:03
ED-Skin Assessment Last Done: 01/08/25 03:03
Discharge Date and Time
Discharge Date/Time: 01/08/25 05:25
Print Language: CITIZEN [place]
[2025-01-08 05:24] VITALS: BP 190/90
== END 2025-01-08 05:25 | disposition home or self-care (01) ==
LOC: EMR 01:23
PROVIDERS: EMERGENCY PHYSICIAN Student in an Organized Health Care Education/Training Program; FAMILY PHYSICIAN Family Medicine
DX: M54.42 Lumbago with sciatica, left side (principal); M54.16 Radiculopathy, lumbar region; F17.200 Nicotine dependence, unspecified, uncomplicated
CPT/HCPCS: 96372; 99284; 81003; 81015; 87086

== ENCOUNTER → 2025-01-14 09:26 | Outpatient (REF) | payer OTHER, SELFPAY | LOC: RAD 09:26 | PROVIDERS: ATTENDING PHYSICIAN Family Medicine | DX: M54.32 Sciatica, left side (principal) | CPT/HCPCS: 72110 ==

== ENCOUNTER 2025-02-06 13:35 | Outpatient (RCR) | payer OTHER, SELFPAY | END 2025-02-06 23:59 | disposition home or self-care (01) | LOC: RPT 13:35 | PROVIDERS: ATTENDING PHYSICIAN Family Medicine | DX: M54.32 Sciatica, left side (principal); Z73.6 Limitation of activities due to disability; M79.605 Pain in left leg; R26.89 Other abnormalities of gait and mobility; M62.81 Muscle weakness (generalized); M51.369 Other intervertebral disc degeneration, lumbar region without mention of lumbar back pain or lower extremity pain | CPT/HCPCS: 97010; 97110; 97112; 97162; 97535 ==

== ENCOUNTER → 2025-02-17 14:57 | Outpatient (REF) | payer OTHER, SELFPAY | LOC: PAVMRI 14:57 | PROVIDERS: ATTENDING PHYSICIAN Family Medicine | DX: M51.9 Unspecified thoracic, thoracolumbar and lumbosacral intervertebral disc disorder (principal) | CPT/HCPCS: 72148 ==